=== PATIENT | female | born 1945 | race Two or more races ===

== ENCOUNTER 2023-01-03 12:32 | Outpatient (AMB) | payer OTHER, SELFPAY ==
--- NOTE | 2023-01-02 14:34 | A.OFFVIS_ITS ---
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
--- NOTE | 2023-01-02 14:34 | MHC.OFFVIS ---
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
--- NOTE | 2023-01-03 12:46 | MHC.OFFVIS ---
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 She is here with daughter Fany. Daughter states she was diagnosed with dementia and Alzheimer's since 2018 in [place]. Allergies No Known Allergies Allergy (Verified 01/03/23 12:51) Medication List - Last Reconciled 01/03/23 by Twyla Alcaraz MD atropine 1% 1 drp ophthalmic (eye) BID cyanocobalamin (vitamin B-12) 5,000 mcg PO DAILY diphenhydramine HCl (Sominex Maximum Strength) 50 mg PO BEDTIME PRN insulin glargine (Lantus U-100 Insulin) 10 units subcut BID omeprazole 20 mg PO DAILY permethrin 5% (Elimite) 1 appl topical Q14D silver sulfadiazine 1% (Silvadene) 1 appl topical DAILY simvastatin 20 mg PO BEDTIME trazodone 25 mg PO BEDTIME PRN valsartan-hydrochlorothiazide 320-12.5 mg 1 tab PO DAILY HPI HPI Comments History of Present Illness Details 77y/o female comes for further management of dementia. she is accompanied by her daughter who is also her 411 DIRECTORY ASSISTANCE OPERATOR> In 2018 when the patient was visiting form [place] her daughter noticed significant memory issues, hallucinations, behavior issues. when she went back to [place] she was evaluated and diagnosed with Dementia she moved back here her in 2020 and has been worsening since then. she is currently dependant on all her ADLs, confused with family members, place etc. she has irregular sleep schedule , has some delusions, paranoid thoughts and hallucinations and can become agitated . she also acts out in her sleep. [facility] Medical History (Updated 01/03/23 @ 14:01 by Twyla Alcaraz MD) Alzheimer's dementia with agitation Hyperlipidemia Anxiety GERD (gastroesophageal reflux disease) CAD (coronary artery disease) CKD (chronic kidney disease) Glaucoma HTN (hypertension) Diabetes Vasculitis Lightheadedness Blindness Social History Household Members: Family Housing: Apartment Alcohol intake: never Patient Tobacco Use Status: Never used Tobacco Use of substances other than those prescribed or required for medical reasons: No Review of Systems Const Details: blindness Eyes Reports loss of vision ENT Reports hearing loss Card Reports irregular heart rhythm Neuro Reports behavioral changes, Reports confusion, Reports lack of coordination, Reports loss of vision, Reports memory loss and Reports Other visual disturbances Psych Reports behavioral changes, Reports confusion and Reports memory loss Physical Exam Vital Signs: Last Vital Signs Pulse 56 01/03/23 12:47 Resp 16 01/03/23 12:47 BP 120/62 01/03/23 12:47 Pulse Ox 96 01/03/23 12:47 Oxygen Delivery Method Room Air 01/03/23 12:47 Const Other: confused has difficulty comprehending - in wheel chair and plays with her dog toy General: cooperative and confusion Nutritional Appearance: average body habitus Orientation/consciousness: confusion Neuro Other: answers simple questions Difficulty comprehending speech- no dysarthria General: moves all extremities, no focal motor deficits, confusion and Unable to assess gait Cranial nerves: Yes Normal facial strength present Cognition (Neuro): abnormal cognition Gait exam (Neuro): Unable to assess gait Deep tendon reflexes (DTR's): Right triceps reflex intensity grade: 1+, Left triceps reflex intensity grade: 1+, Rt Biceps (C5, C6): 1+, Left biceps reflex intensity grade: 1+, Right patellar reflex intensity grade: 1+ and Left patellar reflex intensity grade: 1+ Assessment & Plan Assessment & Plan (1) Alzheimer's dementia with agitation: Code(s): G30.9 - Alzheimer's disease, unspecified; F02.811 - Dementia in other diseases classified elsewhere, unspecified severity, with agitation Plan Advanced dementia. According to her daughter she used to be on memantine but she was every agitated. The diagnosis was discussed in detail with her daughter, info on [employer] Alzheimers support was given to her. Patients daughter declines any additional medications or investigations F/u as needed Coding Level of Care Code New Pt Level 4 (45749) Diagnoses Alzheimer's dementia with agitation G30.9; F02.811
[2023-01-03 12:47] VITALS: BP 120/62; PULSE 56; RESP 16; O2SAT 96
== END 2023-01-03 13:50 | disposition home or self-care (01) ==
PROVIDERS: PCP Internal Medicine; Visit Provider Psychiatry & Neurology Neurology
DX: G30.9 Alzheimer's disease, unspecified (principal); F02.811 Dementia in other diseases classified elsewhere, unspecified severity, with agitation
CPT/HCPCS: 99204

== ENCOUNTER → 2023-01-03 12:32 | Outpatient (BNVA) | payer OTHER, SELFPAY | PROVIDERS: PCP Internal Medicine; Visit Provider Psychiatry & Neurology Neurology | DX: G30.9 Alzheimer's disease, unspecified (principal); F02.811 Dementia in other diseases classified elsewhere, unspecified severity, with agitation | CPT/HCPCS: 99202 ==

== ENCOUNTER 2023-05-08 13:07 | Outpatient (AMB) | payer OTHER, SELFPAY ==
--- NOTE | 2023-05-08 13:07 | A.OFFVIS_ITS ---
Intake Intake Visit Reasons: Follow up-Conf [phone] Intake Note: Patient can't walk anymore and retaining water in her face. Per Fany, patients daughter Allergies No Known Allergies Allergy (Verified 05/08/23 13:08) HPI HPI Comments History of Present Illness Details 77y/o female patient presents via tele v isit for guardianship paper work. Pt's daughter Divya is on the phone, unable to use tele-video visit. Pt's daughter reports patient cognitive and physical function declined a lot, unable to ambulate or communicate. Pt is dependent on all ADLs. She lives with her daughter. Denies behavior problem. [facility] Medical History (Updated 01/03/23 @ 14:01 by Twyla Alcaraz MD) Alzheimer's dementia with agitation Hyperlipidemia Anxiety GERD (gastroesophageal reflux disease) CAD (coronary artery disease) CKD (chronic kidney disease) Glaucoma HTN (hypertension) Diabetes Vasculitis Lightheadedness Blindness Social History Household Members: Family Housing: Apartment Alcohol intake: never Patient Tobacco Use Status: Never used Tobacco Review of Systems Const All systems reviewed & are unremarkable except as noted in HPI and below Physical Exam Const Other: Unable to assess, it was tele visit, patient even can't tell me her name. Assessment & Plan Assessment & Plan (1) Alzheimer's dementia with agitation: Code(s): G30.9 - Alzheimer's disease, unspecified; F02.811 - Dementia in other diseases classified elsewhere, unspecified severity, with agitation Plan Guardianship paperwork filled out. Telehealth Telehealth Location of provider rendering services: practice address Location of patient: address on file Patient Identification confirmed using: Name, : Yes Telehealth method: voice only Patient verbally consented to treatment: Yes Patient verbally consented to billing insurance company: Yes Patient informed of any privacy concerns related to visit: Yes Minutes spent on Phone/Video with Pt.: 40 Coding Level of Care Code Tele Est Pt Level 4 (97283) Diagnoses Alzheimer's dementia with agitation G30.9; F02.811
== END 2023-05-08 16:00 ==
LOC: HO.HSMS 13:07
PROVIDERS: PCP Internal Medicine; Visit Provider Nurse Practitioner Family
DX: G30.9 Alzheimer's disease, unspecified (principal); F02.811 Dementia in other diseases classified elsewhere, unspecified severity, with agitation
CPT/HCPCS: 99443

== ENCOUNTER → 2023-05-08 13:07 | Outpatient (BNVA) | payer OTHER, SELFPAY | PROVIDERS: PCP Internal Medicine; Visit Provider Nurse Practitioner Family ==

== ENCOUNTER 2023-09-13 10:48 | Outpatient (AMB) | payer OTHER, SELFPAY ==
--- NOTE | 2023-09-13 11:03 | A.OFFVIS_ITS ---
Vital Signs 09/13/23 11:05 Height 5 ft 3 in Weight 130 lb BMI 23.0 BP 122/68 Blood Pressure Location Rt brachial Position Sitting Respiration 16 Pulse 67 Pulse Source Pulse Oximeter Pulse Oximetry (%) 98 Oxygen Delivery Method Room Air Intake Visit Reasons: Follow up - Confirmed Intake Note: Pt presents to the office for a 4 month follow up for Alzheimer's and dementia with agitation. Cooking Instructor Required: Yes Cooking Instructor Services: Cooking Instructor Present Cooking Instructor Name: Julissa Boyd CMA Allergies No Known Allergies Allergy (Verified 09/13/23 11:04) Medication List - Last Reconciled 09/13/23 by Twyla Alcaraz MD atropine 1% 1 drp ophthalmic (eye) BID cyanocobalamin (vitamin B-12) 5,000 mcg PO DAILY diphenhydramine HCl (Sominex Maximum Strength) 50 mg PO BEDTIME PRN insulin glargine (Lantus U-100 Insulin) 10 units subcut BID omeprazole 20 mg PO DAILY permethrin 5% (Elimite) 1 appl topical Q14D silver sulfadiazine 1% (Silvadene) 1 appl topical DAILY simvastatin 20 mg PO BEDTIME trazodone 25 mg PO BEDTIME PRN valsartan-hydrochlorothiazide 320-12.5 mg 1 tab PO DAILY HPI Comments Details: 77y/o female patient comes for follow up for guardianship paper work. Pt's daughter Divya is here with her. Pt's daughter reports patient cognitive and physical function declined a lot, unable to ambulate or communicate. Pt is dependent on all ADLs. She lives with her daughter. Denies behavior problem. [facility]END[facility] S[facility] TO [facility] Medical History Alzheimer's dementia with agitation Hyperlipidemia Anxiety GERD (gastroesophageal reflux disease) CAD (coronary artery disease) CKD (chronic kidney disease) Glaucoma HTN (hypertension) Diabetes Vasculitis Lightheadedness Blindness Social History Household Members: Family Housing: Apartment Alcohol intake: never Patient Tobacco Use Status: Never used Tobacco Review of Systems Neuro Reports confusion Psych Reports confusion Physical Exam Const General: confusion Nutritional Appearance: average body habitus Orientation/consciousness: confusion Neuro Other: in stretcher, no eye contact , cannot follow simple commands General: confusion Assessment & Plan Assessment & Plan (1) Alzheimer's dementia with agitation: Code(s): G30.9 - Alzheimer's disease, unspecified; F02.811 - Dementia in other diseases classified elsewhere, unspecified severity, with agitation Category: Medical Plan Guardianship paperwork filled out. continue supportive care Coding Level of Care Code Est Pt Level 4 (40178) Diagnoses Alzheimer's dementia with agitation G30.9; F02.811
[2023-09-13 11:05] VITALS: BP 122/68; PULSE 67; RESP 16; O2SAT 98; BMI 23.0
== END 2023-09-13 11:19 | disposition home or self-care (01) ==
PROVIDERS: PCP Internal Medicine; Visit Provider Psychiatry & Neurology Neurology
DX: G30.9 Alzheimer's disease, unspecified (principal); F02.811 Dementia in other diseases classified elsewhere, unspecified severity, with agitation
CPT/HCPCS: 99214

== ENCOUNTER → 2023-09-13 10:48 | Outpatient (BNVA) | payer OTHER, SELFPAY | PROVIDERS: PCP Internal Medicine; Visit Provider Psychiatry & Neurology Neurology | DX: G30.9 Alzheimer's disease, unspecified (principal); F02.811 Dementia in other diseases classified elsewhere, unspecified severity, with agitation | CPT/HCPCS: 99212 ==